=== PATIENT | male | born 1960 | race Caucasian/White ===

== ENCOUNTER 2020-09-21 03:30 | Emergency (ER) | payer MEDICARE, OTHER ==
[2020-09-21 04:23] LABS: #Eosinphils 0.1 thou/uL (0.0-0.7); #Lymphocytes 0.9 thou/uL (1.20-3.40); #Monocytes 0.7 thou/uL (0.11-0.59); #Neutrophils 5.1 thou/uL (1.40-6.50); %Basophils 0.2 % (0.0-1.0); %Eosinophils 1.1 % (0.0-10.0); %Lymphocytes 13.6 % (21.0-51.0); %Monocytes 10.5 % (0.0-10.0); %Neutrophils 74.6 % (42.0-75.0); Mean Corpuscular HGB CONC 33.2 g/dL (32.0-36.0); Mean Corpuscular Hemoglobin 31.3 pg (27.0-31.0); Mean Corpuscular Volume 94.2 fL (78.0-98.0); Platelet Count 250 thou/uL (130-400); RBC Distribution Width 12.1 % (11.5-14.5); Red Blood Cell (RBC) Count 4.48 mill/uL (4.70-6.10); White Blood Cell (WBC) Count 6.8 thou/uL (4.8-10.8)
[2020-09-21 04:43] LABS: ALT (SGPT) 13 U/L (8-55); AST (SGOT) 21 U/L (5-34); Albumin 4.1 g/dL (3.5-5.0); Alkaline Phosphatase 84 U/L (40-110); Anion Gap 21 mmol/L (10-20); BUN (Urea Nitrogen) 17 mg/dL (8.4-25.7); Bilirubin, Total 0.2 mg/dL (0.2-1.2); CK (CPK) 63 U/L (30-200); Calc. Creatinine Clearance 0 mL/min (70-130); Calcium 8.5 mg/dL (7.8-10.44); Carbon Dioxide 16 mmol/L (22-29); Chloride 106 mmol/L (98-107); Glucose 173 mg/dL (70-105); Potassium 3.9 mmol/L (3.5-5.1); Protein, Total 7.1 g/dL (6.0-8.3); Sodium 139 mmol/L (136-145)
[2020-09-21] MEDS ORDERED: levETIRAcetam in NS 100 ML ONE (05:48)
[2020-09-21 06:07] LABS: Bacteria/HPF None Seen HPF (None Seen); Bilirubin Negative (Negative); Blood, Urine 1+ (Negative); Clarity Clear (Clear); Glucose, Urine (Dipstick) Normal (Negative); Ketone, Urine Trace mg/dL (Negative); Leukocyte Negative Leu/uL (Negative); Nitrite Negative (Negative); Protein, Urine (Dipstick) 50 mg/dL (Neg-Trace); Specific Gravity, Urine 1.024 (1.002-1.036); Squamous Epithelial 0-3 HPF (0-3); Urobilinogen Normal mg/dL (Less than 2); pH, Urine 5.5 (5.0-9.0)
[2020-09-21 06:08] LABS: Sperm/HPF 1+ HPF (None Seen)
[2020-09-21 06:20] LABS: Amphetamine Not Detected (NotDetected); Barbiturates Screen Not Detected (NotDetected); Benzodiazepine Screen Not Detected (NotDetected); Cocaine Metabolite Screen Not Detected (NotDetected); Medtox Control Line Valid? VALID (VALID); Medtox Reader # READER 1; Methadone Not Detected (NotDetected); Methamphetamine Not Detected (NotDetected); Opiate Screen Not Detected (NotDetected); Oxycodone Screen Not Detected (NotDetected); Phencyclidine (PCP) Not Detected (NotDetected); THC/Cannabinoid Screen Not Detected (NotDetected); Tricyclic Screen Not Detected (NotDetected)
--- NOTE | 2020-09-21 07:29 | CT ---
PRELIMINARY REPORT/[facility]/EMERGENCY AFTER HOURS PROCEDURE EXAM: CT Head Without Intravenous Contrast. CLINICAL HISTORY: Patient brought to the ER by EMS after a possible seizure. EMS reported that they were called by vivi royal due to altered mental status that began more than 12 hours ago. EMS witnessed a single seizure during transport. Patient is now alert but significantly altered. He will not answer question s but simply looks around the room. EMS brought medication bottles that include Keppra. TECHNIQUE: Axial computed tomography images of the head/brain without intravenous contrast. COMPARISON: None provided. FINDINGS: BRAIN: No acute intraparenchymal hemorrhage. No mass lesion. No CT evidence for acute territorial infarct. N o midline shift or extra-axial collection. VENTRICLES: No hydrocephalus. ORBITS: The orbits are unremarkable. SINUSES AND MASTOIDS: The paranasal sinuses and mastoid air cells are clear. SOFT TISSUES: No significant facial or scalp soft tissue swelling evident. No radiopaque foreign body is seen. BONES: No acute skull fracture. IMPRESSION: No acute intracranial abnormality. ELECTRONICALLY SIGNED BY: Candace Valera MD Sep 21, 2020 4:13:48 AM [facility] This report is intended for review by the ordering physician only, in accordance of law. If you recei ve this report in error, please call [facility] at [phone]. FINAL REPORT Final interpretation Head CT without contrast: 09/21/2020 COMPARISON: None. HISTORY: Altered mental status, seizure. FINDINGS: I agree with the preliminary report. The imaged paranasal sinuses and mastoid air cells are grossly unremarkable. There is no displaced calvarial fracture, intracranial hemorrhage, midline shift, or mass effect. There is an area of irregularity involving the inner table of the calvarium in the left frontal region which may be associated with a prominent cortical vein with chronic remodeling. IMPRESSION: No acute intracranial abnormality. Nonspecific area of focal cortical thinning within the calvarium in the left frontal region. Given th is finding and the history of seizure, follow-up brain MRI is suggested. Code QA Transcribed Date/Time: 09/21/2020 7:56 AM
--- NOTE | 2020-09-21 08:41 | RAD ---
PORTABLE CHEST: Date: 09/21/2020 HISTORY: Altered mental status. Patient is status post possible seizure. FINDINGS: Heart size and mediastinum are within normal limits. There is some linear atelectasis or scar in the lung bases. No confluent infiltrative process. 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 IMPRESSION: No active intrathoracic disease. POS: IGNACIO
== END 2020-09-21 07:17 | disposition home or self-care (01) ==
LOC: ERS 03:30 → EDBD 03:30 → ERS 07:17
DX: R56.9 Unspecified convulsions (principal); R41.82 Altered mental status, unspecified; Q74.0 Other congenital malformations of upper limb(s), including shoulder girdle
CPT/HCPCS: 36415; 51701; 70450; 71045; 80053; 80177; 80306; 81003; 81015; 82550; 84484; 85025; 93005; 94760; 96365; J1953

== ENCOUNTER 2021-05-27 10:38 | Day surgery (SDC) | payer MEDICARE, MEDICAID ==
[2021-05-27] MEDS ORDERED: PROPOFOL 200 MG/20 ML VIAL ONE (12:03)
[2021-05-27] MEDS ORDERED: Lidocaine 1% PF 5 ML VIAL ONE (12:03)
== END 2021-05-27 13:20 | disposition home or self-care (01) ==
LOC: SDC 10:38
PROVIDERS: ATTEND Internal Medicine
PROC: 0DBN8ZX Excision of Sigmoid Colon, Via Natural or Artificial Opening Endoscopic, Diagnostic (ICD-10-PCS; principal; 2021-05-27)
DX: K52.9 Noninfective gastroenteritis and colitis, unspecified (principal); K63.5 Polyp of colon; K64.8 Other hemorrhoids; K57.30 Diverticulosis of large intestine without perforation or abscess without bleeding; G40.909 Epilepsy, unspecified, not intractable, without status epilepticus; I10 Essential (primary) hypertension; G47.30 Sleep apnea, unspecified; Z79.899 Other long term (current) drug therapy
CPT/HCPCS: 88305; J2704